=== PATIENT | male | born 1955 | race Caucasian/White ===

== ENCOUNTER 2025-04-05 15:56 | Outpatient (OUT) | payer MEDICARE, SELFPAY | END 2025-04-05 15:57 | disposition home or self-care (01) | LOC: LAB 16:00 | PROVIDERS: PCP Internal Medicine; Visit Provider Internal Medicine | DX: Z00.00 Encounter for general adult medical examination without abnormal findings (principal); Z12.5 Encounter for screening for malignant neoplasm of prostate | CPT/HCPCS: 36415; G0103 ==

== ENCOUNTER 2025-05-10 11:14 | Outpatient (OUT) | payer MEDICARE, SELFPAY ==
[2025-05-12 04:07] LABS: PSA, Free 0.97 ng/mL
== END 2025-05-10 11:15 | disposition home or self-care (01) ==
PROVIDERS: Visit Provider Internal Medicine
DX: R97.20 Elevated prostate specific antigen [PSA] (principal)
CPT/HCPCS: 36415; 84153; 84154